=== PATIENT | male | born 1980 | race Caucasian/White ===

== ENCOUNTER 2017-12-09 04:13 | Emergency (ER) | payer SELFPAY, OTHER | END 2017-12-09 06:53 | disposition left against medical advice (07) | LOC: E/R 04:13 | DX: Z53.21 Procedure and treatment not carried out due to patient leaving prior to being seen by health care provider (principal) ==

== ENCOUNTER 2018-09-26 09:50 | Observation (INO) | payer OTHER ==
[2018-09-26 10:22] LABS: WHITE BLOOD COUNT 11.6 10^3/ul (4.8-10.8)
[2018-09-26 10:22] LABS: ADD MAN DIFF? NO; BASOPHIL # 0.1 10^3/ul (0.0-0.1); BASOPHILS % 0.6 % (0.0-2.0); EOSINOPHILS # 0.1 10^3/ul (0.0-0.5); EOSINOPHILS % 0.7 % (0.0-7.0); HEMOGLOBIN 15.5 g/dl (14.0-18.0); LYMPHOCYTES # 2.5 10^3/ul (0.8-2.9); LYMPHOCYTES % 21.3 % (15.0-51.0); MEAN CORPUSCULAR HEMOGLOBIN 28.8 pg (29.0-33.0); MEAN CORPUSCULAR HGB CONC 32.3 g/dl (32.0-37.0); MEAN CORPUSCULAR VOLUME 89.2 fl (82.0-101.0); MEAN PLATELET VOLUME 9.9 fl (7.4-10.4); MONOCYTES % 8.7 % (0.0-11.0); NEUTROPHIL # 7.9 10^3/ul (1.6-7.5); NEUTROPHILS % 68.4 % (39.0-77.0); PLATELET COUNT 291 10^3/UL (140-415); RED BLOOD COUNT 5.38 10^6/ul (4.70-6.10); RED CELL DISTRIBUTION WIDTH 13.3 % (11.5-14.5)
[2018-09-26 10:41] LABS: ALANINE AMINOTRANSFERASE 50 IU/L (13-69); ALBUMIN 3.9 g/dl (3.3-4.9); ALBUMIN/GLOBULIN RATIO 1.39; ALKALINE PHOSPHATASE 62 IU/L (42-121); ANION GAP 11 (5-13); ASPARTATE AMINO TRANSFERASE 32 IU/L (15-46); BILIRUBIN,INDIRECT 0.6 mg/dl (0-1.1); BILIRUBIN,TOTAL 0.6 mg/dl (0.2-1.3); BLOOD UREA NITROGEN 16 mg/dl (7-20); CALCIUM 9.1 mg/dl (8.4-10.2); CARBON DIOXIDE 30 mmol/L (21-31); CHLORIDE 103 mmol/L (97-110); CREATININE 1.09 mg/dl (0.61-1.24); Estimated GFR > 60 mL/min (>60); GLUCOSE 139 mg/dl (70-220); POTASSIUM 4.4 mmol/L (3.5-5.1); SODIUM 144 mmol/L (135-144); TOTAL PROTEIN 6.7 g/dl (6.1-8.1)
[2018-09-26 10:53] LABS: B-TYPE NATRIURETIC PEPTIDE 6270 PG/ML (0-125); TROPONIN-I 0.096 ng/ml (0.000-0.120)
[2018-09-26] MEDS: ASPIRIN 325 MG TAB PO (11:13)
[2018-09-26] MEDS: FUROSEMIDE 40 MG INJ IV (11:21)
[2018-09-26] MEDS ORDERED: NACL 0.9% 3 ML SYG IV (14:00)
[2018-09-26] MEDS ORDERED: ACETAMINOPHEN 325 MG TAB PO (14:00)
[2018-09-26] MEDS ORDERED: ONDANSETRON 4 MG INJ IV (14:00)
[2018-09-26] MEDS ORDERED: DOCUSATE SODIUM 100 MG CAP PO (14:00)
[2018-09-26] MEDS: POTASSIUM CHLORIDE (SR) 20 MEQ TAB PO (14:43)
[2018-09-26] MEDS: CARvedilol (CR) 10 MG CAP PO (14:45)
[2018-09-26] MEDS ORDERED: NITROGLYCERIN (SL) 0.4 MG TAB SL (15:00)
[2018-09-26] MEDS ORDERED: CARvedilol (CR) 10 MG CAP PO (15:30)
[2018-09-26] MEDS ORDERED: CARvedilol (CR) 20 MG CAP PO (15:30)
[2018-09-26 16:29] LABS: CREATINE KINASE 79 IU/L (23-200)
[2018-09-26 16:41] LABS: CK INDEX 1.4
[2018-09-26] MEDS: FUROSEMIDE 20 MG INJ IV (17:35)
[2018-09-26 20:20] LABS: CREATINE KINASE 73 IU/L (23-200)
[2018-09-26 20:33] LABS: CK INDEX 1.4; CK-MB 1.05 ng/ml (0.0-2.4); TROPONIN-I 0.078 ng/ml (0.000-0.120)
[2018-09-26] MEDS: ISOSORBIDE DINITRATE 10 MG TAB PO (20:48)
[2018-09-26] MEDS: FAMOTIDINE 20 MG INJ IV (20:48)
[2018-09-27 06:08] LABS: ANION GAP 6 (5-13); BLOOD UREA NITROGEN 15 mg/dl (7-20); CALCIUM 9.5 mg/dl (8.4-10.2); CARBON DIOXIDE 31 mmol/L (21-31); CHLORIDE 100 mmol/L (97-110); CREATININE 1.26 mg/dl (0.61-1.24); Estimated GFR > 60 mL/min (>60); GLUCOSE 129 mg/dl (70-220); POTASSIUM 4.5 mmol/L (3.5-5.1); SODIUM 137 mmol/L (135-144)
[2018-09-27 06:10] LABS: CHOLESTEROL 111 mg/dl (100-200)
[2018-09-27 06:10] LABS: CHOL/HDL RATIO 3.4 RATIO; HDL CHOLESTEROL 32 mg/dl (27-67); LDL CHOLESTEROL,CALCULATED 56 mg/dl; TRIGLYCERIDES 116 mg/dl (0-149)
[2018-09-27 06:29] LABS: MAGNESIUM 1.8 mg/dl (1.7-2.5)
[2018-09-27 06:29] LABS: PHOSPHORUS 4.1 mg/dl (2.5-4.9)
[2018-09-27 06:36] LABS: THYROID STIMULATING HORMONE 0.322 MIU/L (0.465-4.680)
[2018-09-27] MEDS: FUROSEMIDE 20 MG INJ IV (06:46)
[2018-09-27] MEDS: POTASSIUM CHLORIDE (SR) 20 MEQ TAB PO (09:12)
[2018-09-27] MEDS: ASPIRIN (EC) 81 MG TAB PO (09:12)
[2018-09-27] MEDS: BENAZEPRIL 5 MG TAB PO (09:13)
[2018-09-27] MEDS: ISOSORBIDE DINITRATE 10 MG TAB PO ×3 (09:13→21:11)
[2018-09-27] MEDS: CARvedilol (CR) 10 MG CAP PO (09:14)
[2018-09-27] MEDS: ENOXAPARIN 40 MG/0.4 ML SYG SC (09:28)
[2018-09-27] MEDS: FAMOTIDINE 20 MG INJ IV ×2 (09:35→21:11)
[2018-09-27] MEDS: INFLUENZA VIRUS VACCINE 0.5 ML (DISPENSING) IM* (09:36)
[2018-09-27 14:15] LABS: FREE T4 (FREE THYROXINE) 1.25 ng/dl (0.64-1.79)
[2018-09-27 23:13] LABS: BARBITURATES Negative (NEGATIVE); BENZODIAZEPINES Negative (NEGATIVE); CANNABINOIDS Positive (NEGATIVE); COCAINE Negative (NEGATIVE); OPIATES Negative (NEGATIVE)
[2018-09-27 23:23] LABS: AMPHETAMINE/METHAMPHETAMINE POSITIVE (NEGATIVE)
[2018-09-28] MEDS: POTASSIUM CHLORIDE (SR) 20 MEQ TAB PO (09:00)
[2018-09-28] MEDS: BENAZEPRIL 5 MG TAB PO (09:00)
[2018-09-28] MEDS: ISOSORBIDE DINITRATE 10 MG TAB PO ×2 (09:00→13:00)
[2018-09-28] MEDS: FUROSEMIDE 20 MG INJ IV (09:00)
[2018-09-28] MEDS: ENOXAPARIN 40 MG/0.4 ML SYG SC (09:00)
[2018-09-28] MEDS: FAMOTIDINE 20 MG INJ IV (09:00)
[2018-09-28] MEDS: ASPIRIN (EC) 81 MG TAB PO (09:39)
[2018-09-28] MEDS: REGADENOSON 0.4 MG/5 ML SYG (12:43)
[2018-09-28] MEDS ORDERED: FAMOTIDINE 20 MG TAB PO (21:00)
== END 2018-09-28 16:50 | disposition home or self-care (01) ==
LOC: E/R 09:50 → 6WM 11:11
DX: I11.0 Hypertensive heart disease with heart failure (principal); I50.20 Unspecified systolic (congestive) heart failure; F14.10 Cocaine abuse, uncomplicated; F15.10 Other stimulant abuse, uncomplicated; E78.00 Pure hypercholesterolemia, unspecified; Z87.891 Personal history of nicotine dependence; E66.9 Obesity, unspecified; Z68.38 Body mass index [BMI] 38.0-38.9, adult; Z79.82 Long term (current) use of aspirin; Z23 Encounter for immunization
CPT/HCPCS: 36415; 71045; 78452; 80048; 80053; 80061; 80307; 82550; 82553; 83735; 83880; 84100; 84439; 84443; 84481; 84484; 85025; 90686; 93005; 93017; 93306; 99285-25; G0378

== ENCOUNTER 2018-12-12 14:26 | Emergency (ER) | payer SELFPAY, OTHER | END 2018-12-12 15:21 | disposition left against medical advice (07) | LOC: FTE 14:26 | DX: Z53.21 Procedure and treatment not carried out due to patient leaving prior to being seen by health care provider (principal) ==

== ENCOUNTER 2018-12-13 21:56 | Emergency (ER) | payer OTHER ==
[2018-12-13 22:46] LABS: ADD MAN DIFF? NO
[2018-12-13 22:48] LABS: BASOPHIL # 0.1 10^3/ul (0.0-0.1); BASOPHILS % 0.8 % (0.0-2.0); EOSINOPHILS # 0.2 10^3/ul (0.0-0.5); HEMATOCRIT 56.5 % (42.0-52.0); HEMOGLOBIN 18.2 g/dl (14.0-18.0); LYMPHOCYTES # 2.3 10^3/ul (0.8-2.9); MEAN CORPUSCULAR HEMOGLOBIN 27.3 pg (29.0-33.0); MEAN CORPUSCULAR HGB CONC 32.2 g/dl (32.0-37.0); MEAN CORPUSCULAR VOLUME 84.7 fl (82.0-101.0); MEAN PLATELET VOLUME 9.9 fl (7.4-10.4); MONOCYTE # 1.1 10^3/ul (0.3-0.9); MONOCYTES % 7.2 % (0.0-11.0); NEUTROPHIL # 10.9 10^3/ul (1.6-7.5); NEUTROPHILS % 74.5 % (39.0-77.0); PLATELET COUNT 339 10^3/UL (140-415); RED BLOOD COUNT 6.67 10^6/ul (4.70-6.10); RED CELL DISTRIBUTION WIDTH 15.4 % (11.5-14.5)
[2018-12-13 22:48] LABS: WHITE BLOOD COUNT 14.7 10^3/ul (4.8-10.8)
[2018-12-13 23:09] LABS: INR 1.12; PARTIAL THROMBOPLASTIN TIME 28.2 Sec (23.0-35.0); PROTIME 14.5 Sec (11.9-14.9); PT RATIO 1.1
[2018-12-13 23:26] LABS: ALANINE AMINOTRANSFERASE 32 IU/L (13-69); ALBUMIN 4.3 g/dl (3.3-4.9); ALBUMIN/GLOBULIN RATIO 1.38; ALKALINE PHOSPHATASE 91 IU/L (42-121); ANION GAP 11 (5-13); ASPARTATE AMINO TRANSFERASE 34 IU/L (15-46); BILIRUBIN,INDIRECT 1.5 mg/dl (0-1.1); BILIRUBIN,TOTAL 1.5 mg/dl (0.2-1.3); BLOOD UREA NITROGEN 22 mg/dl (7-20); CARBON DIOXIDE 25 mmol/L (21-31); CHLORIDE 101 mmol/L (97-110); CREATININE 1.33 mg/dl (0.61-1.24); Estimated GFR 60 mL/min (>60); GLUCOSE 130 mg/dl (70-220); POTASSIUM 5.4 mmol/L (3.5-5.1); SODIUM 137 mmol/L (135-144); TOTAL PROTEIN 7.4 g/dl (6.1-8.1)
[2018-12-13 23:37] LABS: TROPONIN-I 0.032 ng/ml (0.000-0.120)
[2018-12-14 04:11] LABS: LIPASE 60 U/L (23-300)
== END 2018-12-14 06:13 | disposition left against medical advice (07) ==
LOC: E/R 12-14 06:13
DX: H10.9 Unspecified conjunctivitis (principal); I11.0 Hypertensive heart disease with heart failure; I50.9 Heart failure, unspecified; K80.20 Calculus of gallbladder without cholecystitis without obstruction; E87.5 Hyperkalemia; D72.829 Elevated white blood cell count, unspecified; Z79.82 Long term (current) use of aspirin
CPT/HCPCS: 36415; 71045; 74176; 76705; 80053; 83605; 83690; 84484; 85025; 85610; 85730; 87040-91; 99285-25

== ENCOUNTER 2019-01-02 07:38 | Emergency (ER) | payer OTHER ==
[2019-01-02 08:15] LABS: ADD MAN DIFF? NO
[2019-01-02 08:17] LABS: WHITE BLOOD COUNT 13.7 10^3/ul (4.8-10.8)
[2019-01-02 08:18] LABS: BASOPHIL # 0.1 10^3/ul (0.0-0.1); BASOPHILS % 0.7 % (0.0-2.0); EOSINOPHILS # 0.3 10^3/ul (0.0-0.5); EOSINOPHILS % 2.3 % (0.0-7.0); HEMATOCRIT 50.1 % (42.0-52.0); HEMOGLOBIN 16.1 g/dl (14.0-18.0); LYMPHOCYTES # 2.4 10^3/ul (0.8-2.9); LYMPHOCYTES % 17.8 % (15.0-51.0); MEAN CORPUSCULAR HEMOGLOBIN 27.6 pg (29.0-33.0); MEAN CORPUSCULAR HGB CONC 32.1 g/dl (32.0-37.0); MEAN CORPUSCULAR VOLUME 85.8 fl (82.0-101.0); MEAN PLATELET VOLUME 9.6 fl (7.4-10.4); MONOCYTE # 1.2 10^3/ul (0.3-0.9); MONOCYTES % 8.8 % (0.0-11.0); NEUTROPHIL # 9.6 10^3/ul (1.6-7.5); NEUTROPHILS % 69.9 % (39.0-77.0); PLATELET COUNT 373 10^3/UL (140-415); RED BLOOD COUNT 5.84 10^6/ul (4.70-6.10); RED CELL DISTRIBUTION WIDTH 16.7 % (11.5-14.5)
[2019-01-02 08:41] LABS: ALANINE AMINOTRANSFERASE 421 IU/L (13-69); ALBUMIN 3.6 g/dl (3.3-4.9); ALBUMIN/GLOBULIN RATIO 1.33; ALKALINE PHOSPHATASE 121 IU/L (42-121); ANION GAP 8 (5-13); ASPARTATE AMINO TRANSFERASE 190 IU/L (15-46); BLOOD UREA NITROGEN 29 mg/dl (7-20); CALCIUM 9.1 mg/dl (8.4-10.2); CARBON DIOXIDE 27 mmol/L (21-31); CHLORIDE 103 mmol/L (97-110); CREATININE 1.21 mg/dl (0.61-1.24); Estimated GFR > 60 mL/min (>60); GLUCOSE 147 mg/dl (70-220); POTASSIUM 4.8 mmol/L (3.5-5.1); SODIUM 138 mmol/L (135-144); TOTAL PROTEIN 6.3 g/dl (6.1-8.1)
[2019-01-02 08:52] LABS: B-TYPE NATRIURETIC PEPTIDE 11100 PG/ML (0-125); TROPONIN-I 0.063 ng/ml (0.000-0.120)
== END 2019-01-02 14:33 | disposition home or self-care (01) ==
LOC: E/R 07:38
DX: F31.9 Bipolar disorder, unspecified (principal); R40.2142 Coma scale, eyes open, spontaneous, at arrival to emergency department; R40.2362 Coma scale, best motor response, obeys commands, at arrival to emergency department; R40.2252 Coma scale, best verbal response, oriented, at arrival to emergency department; F17.210 Nicotine dependence, cigarettes, uncomplicated; I11.0 Hypertensive heart disease with heart failure; I50.9 Heart failure, unspecified; Z79.82 Long term (current) use of aspirin
CPT/HCPCS: 36415; 71045; 80053; 83880; 84484; 85025; 93005; 99285-25

== ENCOUNTER 2019-01-04 22:41 | Emergency (ER) | payer OTHER ==
[2019-01-05 00:36] LABS: ADD MAN DIFF? NO
[2019-01-05 00:41] LABS: WHITE BLOOD COUNT 13.6 10^3/ul (4.8-10.8)
[2019-01-05 00:41] LABS: BASOPHIL # 0.1 10^3/ul (0.0-0.1); BASOPHILS % 0.9 % (0.0-2.0); EOSINOPHILS # 0.5 10^3/ul (0.0-0.5); EOSINOPHILS % 3.7 % (0.0-7.0); HEMATOCRIT 53.3 % (42.0-52.0); HEMOGLOBIN 16.9 g/dl (14.0-18.0); LYMPHOCYTES # 2.8 10^3/ul (0.8-2.9); LYMPHOCYTES % 20.4 % (15.0-51.0); MEAN CORPUSCULAR HGB CONC 31.7 g/dl (32.0-37.0); MEAN CORPUSCULAR VOLUME 85.1 fl (82.0-101.0); MEAN PLATELET VOLUME 9.9 fl (7.4-10.4); MONOCYTE # 1.2 10^3/ul (0.3-0.9); MONOCYTES % 8.4 % (0.0-11.0); NEUTROPHILS % 66.2 % (39.0-77.0); PLATELET COUNT 378 10^3/UL (140-415); RED BLOOD COUNT 6.26 10^6/ul (4.70-6.10); RED CELL DISTRIBUTION WIDTH 17.4 % (11.5-14.5)
[2019-01-05 01:01] LABS: INR 1.14; PROTIME 14.7 Sec (11.9-14.9); PT RATIO 1.1
[2019-01-05 01:26] LABS: ALANINE AMINOTRANSFERASE 242 IU/L (13-69); ALBUMIN 3.9 g/dl (3.3-4.9); ALBUMIN/GLOBULIN RATIO 1.39; ALKALINE PHOSPHATASE 105 IU/L (42-121); ANION GAP 10 (5-13); ASPARTATE AMINO TRANSFERASE 61 IU/L (15-46); BILIRUBIN,INDIRECT 0.9 mg/dl (0-1.1); BILIRUBIN,TOTAL 0.9 mg/dl (0.2-1.3); BLOOD UREA NITROGEN 29 mg/dl (7-20); CALCIUM 9.6 mg/dl (8.4-10.2); CARBON DIOXIDE 26 mmol/L (21-31); CHLORIDE 103 mmol/L (97-110); CREATININE 1.31 mg/dl (0.61-1.24); Estimated GFR > 60 mL/min (>60); GLUCOSE 97 mg/dl (70-220); POTASSIUM 5.3 mmol/L (3.5-5.1); SODIUM 139 mmol/L (135-144); TOTAL PROTEIN 6.7 g/dl (6.1-8.1)
[2019-01-05 01:37] LABS: B-TYPE NATRIURETIC PEPTIDE 10100 PG/ML (0-125); TROPONIN-I 0.031 ng/ml (0.000-0.120)
[2019-01-05 02:04] LABS: AMPHETAMINE/METHAMPHETAMINE Negative (NEGATIVE); BARBITURATES Negative (NEGATIVE); BENZODIAZEPINES Negative (NEGATIVE); CANNABINOIDS Negative (NEGATIVE); COCAINE Negative (NEGATIVE); OPIATES Negative (NEGATIVE)
[2019-01-05 02:12] LABS: ETHANOL < 10.0 mg/dl (0-0)
[2019-01-05] MEDS: LORAZEPAM 2 MG INJ IV (02:37)
[2019-01-05] MEDS ORDERED: IODIXANOL LOCM 100 ML BTL (03:45)
[2019-01-05] MEDS ORDERED: SOD CHLORIDE 0.9% 100 ML (03:45)
[2019-01-05] MEDS: SOD CHLORIDE 0.9% 500 ML IV ×2 (04:24→04:29)
== END 2019-01-05 05:35 | disposition home or self-care (01) ==
LOC: E/R 22:41
DX: F41.9 Anxiety disorder, unspecified (principal); D72.829 Elevated white blood cell count, unspecified; E87.5 Hyperkalemia; I12.9 Hypertensive chronic kidney disease with stage 1 through stage 4 chronic kidney disease, or unspecified chronic kidney disease; N18.9 Chronic kidney disease, unspecified; R74.0 Nonspecific elevation of levels of transaminase and lactic acid dehydrogenase [LDH]; I11.0 Hypertensive heart disease with heart failure; I50.9 Heart failure, unspecified; Z87.891 Personal history of nicotine dependence; Z79.82 Long term (current) use of aspirin
CPT/HCPCS: 36415; 71045; 80053; 80307; 83880; 84484; 85025; 85610; 93005; 96374; 99285-25

== ENCOUNTER 2019-01-08 23:58 | Inpatient (IN) | payer OTHER ==
[2019-01-09] MEDS: SOD CHLORIDE 0.9% 1,000 ML IV (03:31)
[2019-01-09] MEDS: morphine 2 MG INJ IV ×2 (04:06→22:19)
[2019-01-09 05:08] LABS: ADD MAN DIFF? NO
[2019-01-09 05:26] LABS: BASOPHIL # 0.1 10^3/ul (0.0-0.1); BASOPHILS % 0.7 % (0.0-2.0); EOSINOPHILS # 0.6 10^3/ul (0.0-0.5); EOSINOPHILS % 5.5 % (0.0-7.0); HEMATOCRIT 47.4 % (42.0-52.0); HEMOGLOBIN 14.9 g/dl (14.0-18.0); LYMPHOCYTES # 2.6 10^3/ul (0.8-2.9); LYMPHOCYTES % 22.8 % (15.0-51.0); MEAN CORPUSCULAR HEMOGLOBIN 26.9 pg (29.0-33.0); MEAN CORPUSCULAR HGB CONC 31.4 g/dl (32.0-37.0); MEAN CORPUSCULAR VOLUME 85.7 fl (82.0-101.0); MONOCYTES % 9.1 % (0.0-11.0); NEUTROPHILS % 61.3 % (39.0-77.0); PLATELET COUNT 282 10^3/UL (140-415); RED BLOOD COUNT 5.53 10^6/ul (4.70-6.10); RED CELL DISTRIBUTION WIDTH 16.7 % (11.5-14.5)
[2019-01-09 05:26] LABS: WHITE BLOOD COUNT 11.4 10^3/ul (4.8-10.8)
[2019-01-09 05:43] LABS: ALANINE AMINOTRANSFERASE 85 IU/L (13-69); ALBUMIN 3.3 g/dl (3.3-4.9); ALBUMIN/GLOBULIN RATIO 1.32; ALKALINE PHOSPHATASE 89 IU/L (42-121); ANION GAP 8 (5-13); ASPARTATE AMINO TRANSFERASE 32 IU/L (15-46); BLOOD UREA NITROGEN 23 mg/dl (7-20); CALCIUM 9.2 mg/dl (8.4-10.2); CARBON DIOXIDE 28 mmol/L (21-31); CHLORIDE 106 mmol/L (97-110); Estimated GFR > 60 mL/min (>60); GLUCOSE 91 mg/dl (70-220); POTASSIUM 4.8 mmol/L (3.5-5.1); SODIUM 142 mmol/L (135-144); TOTAL PROTEIN 5.8 g/dl (6.1-8.1)
[2019-01-09] MEDS: metroNIDAZOLE 500 MG/NS (PMX) 100 ML IVPB ×3 (09:41→22:17)
[2019-01-09] MEDS: CEFTRIAXONE 1 GM/50 ML (PMX) 50 ML IVPB (09:41)
[2019-01-09] MEDS: BENAZEPRIL 10 MG TAB PO (15:21)
[2019-01-09] MEDS: FUROSEMIDE 20 MG INJ IV (15:21)
[2019-01-09 16:09] LABS: TROPONIN-I 0.037 ng/ml (0.000-0.120)
[2019-01-10] MEDS ORDERED: NITROGLYCERIN (SL) 0.4 MG TAB (01:53)
[2019-01-10] MEDS ORDERED: NITROGLYCERIN (SL) 0.4 MG TAB SL (02:00)
[2019-01-10] MEDS: morphine 2 MG INJ IV (02:07)
[2019-01-10] MEDS: ONDANSETRON 4 MG INJ IV (02:10)
[2019-01-10 03:45] LABS: TROPONIN-I 0.055 ng/ml (0.000-0.120)
[2019-01-10] MEDS: metroNIDAZOLE 500 MG/NS (PMX) 100 ML IVPB ×3 (05:57→21:03)
[2019-01-10 06:25] LABS: ADD MAN DIFF? NO
[2019-01-10 06:30] LABS: WHITE BLOOD COUNT 7.7 10^3/ul (4.8-10.8)
[2019-01-10 06:30] LABS: BASOPHILS % 0.4 % (0.0-2.0); EOSINOPHILS # 0.6 10^3/ul (0.0-0.5); EOSINOPHILS % 7.3 % (0.0-7.0); HEMATOCRIT 43.7 % (42.0-52.0); HEMOGLOBIN 14.1 g/dl (14.0-18.0); LYMPHOCYTES # 1.4 10^3/ul (0.8-2.9); LYMPHOCYTES % 17.7 % (15.0-51.0); MEAN CORPUSCULAR HEMOGLOBIN 27.2 pg (29.0-33.0); MEAN CORPUSCULAR HGB CONC 32.3 g/dl (32.0-37.0); MEAN CORPUSCULAR VOLUME 84.2 fl (82.0-101.0); MEAN PLATELET VOLUME 9.8 fl (7.4-10.4); MONOCYTE # 0.7 10^3/ul (0.3-0.9); MONOCYTES % 9.4 % (0.0-11.0); NEUTROPHILS % 64.7 % (39.0-77.0); PLATELET COUNT 243 10^3/UL (140-415); RED BLOOD COUNT 5.19 10^6/ul (4.70-6.10)
[2019-01-10 06:57] LABS: MAGNESIUM 1.8 mg/dl (1.7-2.5)
[2019-01-10 06:57] LABS: PHOSPHORUS 3.9 mg/dl (2.5-4.9)
[2019-01-10 07:11] LABS: ALANINE AMINOTRANSFERASE 68 IU/L (13-69); ALBUMIN 2.9 g/dl (3.3-4.9); ALBUMIN/GLOBULIN RATIO 1.07; ALKALINE PHOSPHATASE 85 IU/L (42-121); ANION GAP 7 (5-13); ASPARTATE AMINO TRANSFERASE 23 IU/L (15-46); BILIRUBIN,INDIRECT 0.9 mg/dl (0-1.1); BILIRUBIN,TOTAL 0.9 mg/dl (0.2-1.3); BLOOD UREA NITROGEN 18 mg/dl (7-20); CALCIUM 9.2 mg/dl (8.4-10.2); CARBON DIOXIDE 28 mmol/L (21-31); CHLORIDE 105 mmol/L (97-110); CREATININE 0.96 mg/dl (0.61-1.24); Estimated GFR > 60 mL/min (>60); GLUCOSE 98 mg/dl (70-220); POTASSIUM 4.3 mmol/L (3.5-5.1); SODIUM 140 mmol/L (135-144); TOTAL PROTEIN 5.6 g/dl (6.1-8.1)
[2019-01-10] MEDS: ASPIRIN 81 MG TAB PO (09:45)
[2019-01-10 10:35] LABS: TROPONIN-I 0.045 ng/ml (0.000-0.120)
[2019-01-10] MEDS: CEFTRIAXONE 1 GM/50 ML (PMX) 50 ML IVPB (12:21)
[2019-01-10] MEDS: BENAZEPRIL 10 MG TAB PO (12:31)
[2019-01-10] MEDS: FUROSEMIDE 20 MG INJ IV ×2 (12:31→15:00)
[2019-01-10] MEDS: MAGNESIUM SULFATE 2 GM/50 ML 50 ML IVPB (15:00)
[2019-01-10] MEDS: ACETAMINOPHEN 325 MG TAB PO (21:38)
[2019-01-11] MEDS: morphine 2 MG INJ IV (01:45)
[2019-01-11] MEDS: ONDANSETRON 4 MG INJ IV (01:51)
[2019-01-11] MEDS: metroNIDAZOLE 500 MG/NS (PMX) 100 ML IVPB ×2 (05:31→13:58)
[2019-01-11 05:55] LABS: ADD MAN DIFF? NO
[2019-01-11 05:59] LABS: BASOPHIL # 0.1 10^3/ul (0.0-0.1); BASOPHILS % 0.6 % (0.0-2.0); EOSINOPHILS # 0.5 10^3/ul (0.0-0.5); EOSINOPHILS % 5.4 % (0.0-7.0); HEMATOCRIT 45.8 % (42.0-52.0); HEMOGLOBIN 14.5 g/dl (14.0-18.0); LYMPHOCYTES # 1.7 10^3/ul (0.8-2.9); LYMPHOCYTES % 18.5 % (15.0-51.0); MEAN CORPUSCULAR HEMOGLOBIN 26.9 pg (29.0-33.0); MEAN CORPUSCULAR HGB CONC 31.7 g/dl (32.0-37.0); MEAN CORPUSCULAR VOLUME 84.8 fl (82.0-101.0); MEAN PLATELET VOLUME 10.2 fl (7.4-10.4); MONOCYTE # 0.9 10^3/ul (0.3-0.9); MONOCYTES % 9.8 % (0.0-11.0); NEUTROPHIL # 6.1 10^3/ul (1.6-7.5); NEUTROPHILS % 65.4 % (39.0-77.0); PLATELET COUNT 257 10^3/UL (140-415); RED CELL DISTRIBUTION WIDTH 16.6 % (11.5-14.5)
[2019-01-11 05:59] LABS: WHITE BLOOD COUNT 9.4 10^3/ul (4.8-10.8)
[2019-01-11 06:21] LABS: ANION GAP 7 (5-13); BLOOD UREA NITROGEN 20 mg/dl (7-20); CALCIUM 9.1 mg/dl (8.4-10.2); CARBON DIOXIDE 28 mmol/L (21-31); CHLORIDE 106 mmol/L (97-110); CREATININE 1.07 mg/dl (0.61-1.24); Estimated GFR > 60 mL/min (>60); GLUCOSE 114 mg/dl (70-220); POTASSIUM 4.3 mmol/L (3.5-5.1); SODIUM 141 mmol/L (135-144)
[2019-01-11 06:25] LABS: MAGNESIUM 2.2 mg/dl (1.7-2.5)
[2019-01-11] MEDS ORDERED: LIDOCAINE 1% (MPF) 30 ML INJ (09:32)
[2019-01-11] MEDS ORDERED: BUPIVACAINE 0.25%/EPI (SDV) 30 ML INJ (09:32)
[2019-01-11] MEDS: BENAZEPRIL 10 MG TAB PO (10:23)
[2019-01-11] MEDS: ASPIRIN 81 MG TAB PO (10:24)
[2019-01-11] MEDS: FUROSEMIDE 20 MG INJ IV (10:25)
[2019-01-11] MEDS: CEFTRIAXONE 1 GM/50 ML (PMX) 50 ML IVPB (10:26)
[2019-01-11] MEDS ORDERED: ATORVASTATIN 20 MG TAB PO (21:00)
[2019-01-12] MEDS ORDERED: FUROSEMIDE 40 MG TAB PO (06:00)
== END 2019-01-11 19:15 | disposition home or self-care (01) | DRG 444 ==
LOC: 6WM 01-10 03:08 → MS1 23:58
DX: K80.10 Calculus of gallbladder with chronic cholecystitis without obstruction (principal); I50.23 Acute on chronic systolic (congestive) heart failure; I42.9 Cardiomyopathy, unspecified; I50.20 Unspecified systolic (congestive) heart failure; I11.0 Hypertensive heart disease with heart failure; F14.10 Cocaine abuse, uncomplicated; F19.10 Other psychoactive substance abuse, uncomplicated; E78.5 Hyperlipidemia, unspecified; F31.9 Bipolar disorder, unspecified; R39.11 Hesitancy of micturition; E66.9 Obesity, unspecified; Z71.3 Dietary counseling and surveillance; Z68.37 Body mass index [BMI] 37.0-37.9, adult; Z79.82 Long term (current) use of aspirin
CPT/HCPCS: 71045; 78226; 80048; 80053; 83735; 84100; 84484; 85025; 93005; 93306

== ENCOUNTER 2019-01-19 04:06 | Inpatient (IN) | payer OTHER ==
[2019-01-19] MEDS ORDERED: HEPARIN 25000 UNITS/250 ML 250 ML (04:18)
[2019-01-19] MEDS: metroNIDAZOLE 500 MG TAB PO ×4 (06:00→21:31)
[2019-01-19] MEDS ORDERED: ZOLPIDEM 5 MG TAB PO (06:00)
[2019-01-19] MEDS ORDERED: ACETAMINOPHEN 325 MG TAB PO (06:00)
[2019-01-19] MEDS: FUROSEMIDE 40 MG TAB PO (06:50)
[2019-01-19] MEDS: HEPARIN 25000 UNITS/250 ML 250 ML IV ×4 (06:56→21:30)
[2019-01-19 08:42] LABS: ADD MAN DIFF? NO
[2019-01-19 08:51] LABS: WHITE BLOOD COUNT 9.2 10^3/ul (4.8-10.8)
[2019-01-19 08:51] LABS: BASOPHIL # 0.1 10^3/ul (0.0-0.1); BASOPHILS % 1.4 % (0.0-2.0); EOSINOPHILS # 0.3 10^3/ul (0.0-0.5); EOSINOPHILS % 2.9 % (0.0-7.0); HEMATOCRIT 45.1 % (42.0-52.0); HEMOGLOBIN 14.6 g/dl (14.0-18.0); LYMPHOCYTES # 2.1 10^3/ul (0.8-2.9); LYMPHOCYTES % 23.2 % (15.0-51.0); MEAN CORPUSCULAR HEMOGLOBIN 27.3 pg (29.0-33.0); MEAN CORPUSCULAR HGB CONC 32.4 g/dl (32.0-37.0); MEAN CORPUSCULAR VOLUME 84.3 fl (82.0-101.0); MEAN PLATELET VOLUME 10.6 fl (7.4-10.4); MONOCYTE # 0.8 10^3/ul (0.3-0.9); MONOCYTES % 8.2 % (0.0-11.0); NEUTROPHIL # 5.9 10^3/ul (1.6-7.5); NEUTROPHILS % 63.8 % (39.0-77.0); PLATELET COUNT 257 10^3/UL (140-415); RED BLOOD COUNT 5.35 10^6/ul (4.70-6.10); RED CELL DISTRIBUTION WIDTH 17.2 % (11.5-14.5)
[2019-01-19] MEDS: LAMOTRIGINE 25 MG TAB PO (09:00)
[2019-01-19] MEDS: CARBAMAZEPINE 200 MG TAB PO ×2 (09:00→21:00)
[2019-01-19] MEDS: QUETIAPINE 100 MG TAB PO (09:00)
[2019-01-19 09:02] LABS: ALANINE AMINOTRANSFERASE 28 IU/L (13-69); ALBUMIN 2.7 g/dl (3.3-4.9); ALBUMIN/GLOBULIN RATIO 1.08; ALKALINE PHOSPHATASE 72 IU/L (42-121); ANION GAP 7 (5-13); ASPARTATE AMINO TRANSFERASE 13 IU/L (15-46); BILIRUBIN,INDIRECT 0.7 mg/dl (0-1.1); BILIRUBIN,TOTAL 0.7 mg/dl (0.2-1.3); BLOOD UREA NITROGEN 17 mg/dl (7-20); CALCIUM 8.6 mg/dl (8.4-10.2); CARBON DIOXIDE 27 mmol/L (21-31); CHLORIDE 105 mmol/L (97-110); CREATININE 0.97 mg/dl (0.61-1.24); Estimated GFR > 60 mL/min (>60); GLUCOSE 169 mg/dl (70-220); SODIUM 139 mmol/L (135-144); TOTAL PROTEIN 5.2 g/dl (6.1-8.1)
[2019-01-19 09:10] LABS: PROTIME 15.3 Sec (11.9-14.9); PT RATIO 1.2
[2019-01-19 09:13] LABS: TROPONIN-I 0.026 ng/ml (0.000-0.120)
[2019-01-19 09:40] LABS: PARTIAL THROMBOPLASTIN TIME 71.7 Sec (23.0-35.0)
[2019-01-19] MEDS: BENAZEPRIL 10 MG TAB PO (10:14)
[2019-01-19] MEDS: ALBUTEROL/IPRATROPIUM (NEB) 3 ML AMP HHN (11:28)
[2019-01-19] MEDS: DIGOXIN 0.125 MG TAB PO (17:30)
[2019-01-19] MEDS: MAGNESIUM OXIDE 400 MG TAB PO (17:49)
[2019-01-19] MEDS: ATORVASTATIN 20 MG TAB PO (21:32)
[2019-01-19] MEDS: PIPER-TAZO 3.375 GM IV (PMX) 100 ML IVPB (21:36)
[2019-01-19 23:57] LABS: AMPHETAMINE/METHAMPHETAMINE Negative (NEGATIVE); BARBITURATES Negative (NEGATIVE); BENZODIAZEPINES Negative (NEGATIVE); CANNABINOIDS Positive (NEGATIVE); COCAINE Negative (NEGATIVE); OPIATES Negative (NEGATIVE)
[2019-01-20] MEDS: PIPER-TAZO 3.375 GM IV (PMX) 100 ML IVPB ×3 (05:19→21:08)
[2019-01-20] MEDS: FUROSEMIDE 40 MG TAB PO (05:19)
[2019-01-20] MEDS: metroNIDAZOLE 500 MG TAB PO ×3 (05:19→21:07)
[2019-01-20 06:31] LABS: ADD MAN DIFF? NO
[2019-01-20 06:35] LABS: WHITE BLOOD COUNT 9.1 10^3/ul (4.8-10.8)
[2019-01-20 06:35] LABS: BASOPHIL # 0.1 10^3/ul (0.0-0.1); BASOPHILS % 1.3 % (0.0-2.0); EOSINOPHILS # 0.4 10^3/ul (0.0-0.5); EOSINOPHILS % 3.9 % (0.0-7.0); HEMATOCRIT 43.1 % (42.0-52.0); LYMPHOCYTES # 2.2 10^3/ul (0.8-2.9); LYMPHOCYTES % 24.5 % (15.0-51.0); MEAN CORPUSCULAR HEMOGLOBIN 27.5 pg (29.0-33.0); MEAN CORPUSCULAR HGB CONC 32.5 g/dl (32.0-37.0); MEAN CORPUSCULAR VOLUME 84.5 fl (82.0-101.0); MONOCYTE # 0.8 10^3/ul (0.3-0.9); MONOCYTES % 8.5 % (0.0-11.0); NEUTROPHIL # 5.6 10^3/ul (1.6-7.5); NEUTROPHILS % 61.4 % (39.0-77.0); PLATELET COUNT 256 10^3/UL (140-415); RED CELL DISTRIBUTION WIDTH 17.1 % (11.5-14.5)
[2019-01-20 06:58] LABS: PROTIME 15.3 Sec (11.9-14.9); PT RATIO 1.2
[2019-01-20 06:59] LABS: PARTIAL THROMBOPLASTIN TIME 59.8 Sec (23.0-35.0)
[2019-01-20 07:15] LABS: ALANINE AMINOTRANSFERASE 26 IU/L (13-69); ALBUMIN 2.8 g/dl (3.3-4.9); ALKALINE PHOSPHATASE 69 IU/L (42-121); ANION GAP 6 (5-13); ASPARTATE AMINO TRANSFERASE 20 IU/L (15-46); BILIRUBIN,INDIRECT 0.5 mg/dl (0-1.1); BILIRUBIN,TOTAL 0.5 mg/dl (0.2-1.3); BLOOD UREA NITROGEN 23 mg/dl (7-20); CALCIUM 8.5 mg/dl (8.4-10.2); CARBON DIOXIDE 28 mmol/L (21-31); CHLORIDE 105 mmol/L (97-110); CREATININE 1.04 mg/dl (0.61-1.24); Estimated GFR > 60 mL/min (>60); GLUCOSE 107 mg/dl (70-220); SODIUM 139 mmol/L (135-144); TOTAL PROTEIN 5.6 g/dl (6.1-8.1)
[2019-01-20 07:17] LABS: B-TYPE NATRIURETIC PEPTIDE 4830 PG/ML (0-125)
[2019-01-20 07:28] LABS: FREE T4 (FREE THYROXINE) 1.31 ng/dl (0.64-1.79)
[2019-01-20 07:41] LABS: HEMOGLOBIN A1C 7.3 % (0-5.9)
[2019-01-20 07:42] LABS: POTASSIUM 4.1 mmol/L (3.5-5.1)
[2019-01-20] MEDS: HEPARIN 25000 UNITS/250 ML 250 ML IV ×3 (08:01→19:15)
[2019-01-20 08:33] LABS: THYROID STIMULATING HORMONE 0.961 MIU/L (0.465-4.680)
[2019-01-20] MEDS: QUETIAPINE 100 MG TAB PO (09:00)
[2019-01-20] MEDS: LAMOTRIGINE 25 MG TAB PO (09:00)
[2019-01-20] MEDS: POTASSIUM CHLORIDE (SR) 10 MEQ TAB PO (09:00)
[2019-01-20] MEDS: CARBAMAZEPINE 200 MG TAB PO ×2 (09:00→21:00)
[2019-01-20] MEDS: ASPIRIN 81 MG TAB PO (10:40)
[2019-01-20] MEDS: BENAZEPRIL 10 MG TAB PO (10:40)
[2019-01-20] MEDS ORDERED: GLUCOSE GEL 15 GRAM TUBE BUCCAL (11:30)
[2019-01-20] MEDS ORDERED: GLUCOSE GEL 15 GRAM TUBE PO ×2 (11:30)
[2019-01-20] MEDS ORDERED: GLUCAGON 1 MG INJ IM (11:30)
[2019-01-20] MEDS ORDERED: DEXTROSE 50% 50 ML SYRINGE IV ×2 (11:30)
[2019-01-20] MEDS: INSULIN ASPART [NOVOLOG] 3 ML PEN SC ×3 (11:48→21:00)
[2019-01-20] MEDS: DIGOXIN 0.125 MG TAB PO (13:51)
[2019-01-20 14:33] LABS: PARTIAL THROMBOPLASTIN TIME 31.1 Sec (23.0-35.0)
[2019-01-20 18:54] LABS: PARTIAL THROMBOPLASTIN TIME 65.1 Sec (23.0-35.0)
[2019-01-20] MEDS: ATORVASTATIN 20 MG TAB PO (21:07)
[2019-01-20] MEDS: LORAZEPAM 1 MG TAB PO (23:20)
[2019-01-21 02:17] LABS: ADD MAN DIFF? NO
[2019-01-21 02:18] LABS: BASOPHIL # 0.1 10^3/ul (0.0-0.1); BASOPHILS % 1.1 % (0.0-2.0); EOSINOPHILS # 0.3 10^3/ul (0.0-0.5); EOSINOPHILS % 3.2 % (0.0-7.0); HEMATOCRIT 42.4 % (42.0-52.0); HEMOGLOBIN 13.7 g/dl (14.0-18.0); LYMPHOCYTES # 1.8 10^3/ul (0.8-2.9); LYMPHOCYTES % 19.3 % (15.0-51.0); MEAN CORPUSCULAR HEMOGLOBIN 27.5 pg (29.0-33.0); MEAN CORPUSCULAR HGB CONC 32.3 g/dl (32.0-37.0); MEAN PLATELET VOLUME 10.4 fl (7.4-10.4); MONOCYTE # 0.8 10^3/ul (0.3-0.9); MONOCYTES % 8.5 % (0.0-11.0); NEUTROPHIL # 6.4 10^3/ul (1.6-7.5); NEUTROPHILS % 67.6 % (39.0-77.0); PLATELET COUNT 238 10^3/UL (140-415); RED BLOOD COUNT 4.99 10^6/ul (4.70-6.10); RED CELL DISTRIBUTION WIDTH 16.7 % (11.5-14.5)
[2019-01-21 02:18] LABS: WHITE BLOOD COUNT 9.4 10^3/ul (4.8-10.8)
[2019-01-21 02:40] LABS: PARTIAL THROMBOPLASTIN TIME 63.8 Sec (23.0-35.0)
[2019-01-21 02:44] LABS: ANION GAP 7 (5-13); BLOOD UREA NITROGEN 23 mg/dl (7-20); CALCIUM 8.6 mg/dl (8.4-10.2); CARBON DIOXIDE 27 mmol/L (21-31); CHLORIDE 106 mmol/L (97-110); Estimated GFR > 60 mL/min (>60); GLUCOSE 93 mg/dl (70-220); POTASSIUM 4.3 mmol/L (3.5-5.1); SODIUM 140 mmol/L (135-144)
[2019-01-21] MEDS: HEPARIN 25000 UNITS/250 ML 250 ML IV ×2 (04:09→14:46)
[2019-01-21] MEDS: metroNIDAZOLE 500 MG TAB PO ×2 (06:00→06:48)
[2019-01-21] MEDS: FUROSEMIDE 40 MG TAB PO ×2 (06:00→06:49)
[2019-01-21] MEDS: PIPER-TAZO 3.375 GM IV (PMX) 100 ML IVPB ×3 (06:49→21:00)
[2019-01-21] MEDS: INSULIN ASPART [NOVOLOG] 3 ML PEN SC ×4 (08:00→21:00)
[2019-01-21] MEDS: QUETIAPINE 100 MG TAB PO (09:00)
[2019-01-21] MEDS: POTASSIUM CHLORIDE (SR) 10 MEQ TAB PO (09:00)
[2019-01-21] MEDS: CARBAMAZEPINE 200 MG TAB PO ×3 (09:00→21:02)
[2019-01-21] MEDS: LAMOTRIGINE 25 MG TAB PO (09:00)
[2019-01-21] MEDS: ASPIRIN 81 MG TAB PO (09:00)
[2019-01-21] MEDS: BENAZEPRIL 10 MG TAB PO (09:00)
[2019-01-21] MEDS: DIGOXIN 0.125 MG TAB PO (13:06)
[2019-01-21 17:04] LABS: PARTIAL THROMBOPLASTIN TIME 122.7 Sec (23.0-35.0)
[2019-01-21] MEDS: ATORVASTATIN 20 MG TAB PO (20:59)
[2019-01-22] MEDS: PIPER-TAZO 3.375 GM IV (PMX) 100 ML IVPB ×2 (05:46→14:37)
[2019-01-22] MEDS: FUROSEMIDE 40 MG TAB PO (05:46)
[2019-01-22] MEDS: HEPARIN 1000 UNITS/ML 10 ML INJ IV (06:58)
[2019-01-22] MEDS: HEPARIN 25000 UNITS/250 ML 250 ML IV (07:00)
[2019-01-22] MEDS: INSULIN ASPART [NOVOLOG] 3 ML PEN SC ×3 (08:00→17:01)
[2019-01-22] MEDS: BENAZEPRIL 10 MG TAB PO (09:00)
[2019-01-22] MEDS: ASPIRIN 81 MG TAB PO (09:00)
[2019-01-22] MEDS: LAMOTRIGINE 25 MG TAB PO (09:00)
[2019-01-22] MEDS: POTASSIUM CHLORIDE (SR) 10 MEQ TAB PO (09:00)
[2019-01-22] MEDS: QUETIAPINE 100 MG TAB PO (09:00)
[2019-01-22] MEDS: DIGOXIN 0.125 MG TAB PO (12:58)
[2019-01-22 15:52] LABS: PARTIAL THROMBOPLASTIN TIME > 180.0 Sec (23.0-35.0)
[2019-01-22] MEDS: APIXABAN 5 MG TABLET PO (17:02)
== END 2019-01-22 18:36 | disposition home or self-care (01) | DRG 280 ==
LOC: 6WM 04:06
PROVIDERS: Internal Medicine
DX: I21.4 Non-ST elevation (NSTEMI) myocardial infarction (principal); I50.23 Acute on chronic systolic (congestive) heart failure; I31.3 Pericardial effusion (noninflammatory); R65.10 Systemic inflammatory response syndrome (SIRS) of non-infectious origin without acute organ dysfunction; N17.9 Acute kidney failure, unspecified; I42.9 Cardiomyopathy, unspecified; I11.0 Hypertensive heart disease with heart failure; Z68.36 Body mass index [BMI] 36.0-36.9, adult; F12.90 Cannabis use, unspecified, uncomplicated; E11.9 Type 2 diabetes mellitus without complications; E66.9 Obesity, unspecified; K80.20 Calculus of gallbladder without cholecystitis without obstruction; F31.9 Bipolar disorder, unspecified; E78.5 Hyperlipidemia, unspecified; F14.10 Cocaine abuse, uncomplicated; F15.10 Other stimulant abuse, uncomplicated; Z79.82 Long term (current) use of aspirin; Z87.891 Personal history of nicotine dependence
CPT/HCPCS: 80048; 80053; 80307; 82962; 83036; 83735; 83880; 84439; 84443; 84484; 85025; 85610; 85730; 94664